=== PATIENT | female | born 1985 | race Two or more races ===

== ENCOUNTER 2023-11-18 08:38 | Outpatient (REF) | payer OTHER, SELFPAY ==
[2023-11-18 09:23] LABS: Hemoglobin 12.8 g/dl (12.0-16.0); Mean Corpuscular HGB Conc 32.8 g/dl (31.0-35.0); Mean Corpuscular Hemoglobin 29.9 pg (27.0-33.0); Mean Corpuscular Volume 91.1 fL (80.0-98.0); Mean Platelet Volume 11.2 fL (9.4-12.3); Platelet Count 260 X10*3/uL (160-400); Red Blood Count 4.28 X10*6/uL (4.20-5.50); Red Cell Distribution Width 12.4 % (11.0-16.0); White Blood Count 5.3 X10*3/uL (4.8-10.8)
[2023-11-18 10:03] LABS: Alanine Aminotransferase 16 U/L (0-31); Albumin Level 4.2 g/dL (3.5-5.0); Alkaline Phosphatase 72 U/L (39-117); Anion Gap 11 (12-20); Aspartate Amino Transferase 18 U/L (5-31); Bilirubin Direct 0.2 mg/dL (0.0-0.5); Bilirubin Total 0.6 mg/dL (0.0-1.0); Blood Urea Nitrogen 17 mg/dL (9-16); Calcium 9.4 mg/dL (8.4-10.2); Carbon Dioxide 27 mmol/L (22-29); Chloride 106 mmol/L (96-108); Estimated Glomerular Filt Rate > 60; Glucose Fasting 84 mg/dL (60-99); Potassium 4.3 mmol/L (3.3-5.1); Sodium 140 mmol/L (135-145); Total Protein 7.5 g/dL (6.5-8.0)
[2023-11-18 10:22] LABS: Syphilis Screen Nonreactive (Nonreactive)
[2023-11-19 13:12] LABS: Lyme Abs Screen <0.90 index
[2023-11-20 14:28] LABS: IgA 236 mg/dL (47-310); IgG 1259 mg/dL (600-1640); IgM 94 mg/dL (50-300)
[2023-11-21 21:03] LABS: Anti Nuclear Antibody Screen POSITIVE (NEGATIVE)
[2023-11-21 22:08] LABS: JCV Antibody NEGATIVE; JCV Index Value 0.15
== END 2023-11-18 08:39 | disposition home or self-care (01) ==
LOC: HO.LAB 08:38
PROVIDERS: PCP Internal Medicine; Visit Provider Psychiatry & Neurology Neurology
DX: G35 Multiple sclerosis (principal)
CPT/HCPCS: 36415; 80048; 80076; 82784; 85027; 86038; 86039; 86334; 86617; 86618; 86711; 86780

== ENCOUNTER 2023-11-20 10:02 | Outpatient (REF) | payer OTHER, SELFPAY ==
--- NOTE | 2023-11-20 10:19 | PC.NURSE ---
upon arrival, pt states she has a dairy allergy i break out all over my body with hives, and when i was a baby i almost . pt states she looked up solumedrol and a listed contraindication is allergy to dairy products. pt scheduled for iv solumedrol 1g iv over next 3 days. pharmacy called and stated its up to provider discretion. dr gillette office called and spoke directly with dr gillette. pts concerns were relayed to dr gillette and per dr gillette, solumedrol infusion not to be given. pt made aware and agreeable; encouraged to follow up with dr gillette. allergy list updated.
== END 2023-11-20 10:03 | disposition home or self-care (01) ==
LOC: HO.MDS 10:02
PROVIDERS: Visit Provider Psychiatry & Neurology Neurology
DX: G35 Multiple sclerosis (principal)
CPT/HCPCS: J2930